=== PATIENT | male | born 1970 | race Caucasian/White ===

== ENCOUNTER 2020-01-02 07:39 | Outpatient (CLI) | payer BC, SELFPAY ==
[2020-01-02 07:49] LABS: Basophils Absolute Auto 0.03 K/mm3 (0.00-0.10); Basophils Percent Auto 0.5 % (0.0-1.0); Eosinophils Absolute Auto 0.09 K/mm3 (0.02-0.50); Eosinophils Percent Auto 1.5 % (1.0-6.0); Hematocrit 43.3 % (40.0-54.0); Hemoglobin 14.9 g/dL (14.0-18.0); Immature Granulocyte Absolute 0.02 K/mm3 (0.00-0.00); Immature Granulocyte Percent A 0.3 % (0.0-0.0); Lymphocytes Absolute Auto 2.12 K/mm3 (1.10-4.50); Lymphocytes Percent Auto 35.4 % (18.0-42.0); Mean Corpuscular HGB Conc 34.4 g/dL (32.0-36.0); Mean Corpuscular Hemoglobin 32.7 pg (27.0-31.0); Mean Corpuscular Volume 95.2 fL (78.0-102.0); Mean Platelet Volume 9.1 fl (8.7-11.0); Monocytes Absolute Auto 0.62 K/mm3 (0.10-0.90); Monocytes Percent Auto 10.4 % (2.0-11.0); Neutrophils Absolute Auto 3.1 K/mm3 (1.7-7.2); Neutrophils Percent Auto 51.9 % (50.0-70.0); Platelet Count Result 266 K/mm3 (150-420); Red Blood Count 4.55 M/mm3 (4.70-6.10); Red Cell Distribution Width 12.7 % (11.6-14.4)
[2020-01-02 07:51] LABS: Add Urine Microscopic? YES; Appearance Urine Clear (Clear); Bilirubin Urine Negative (Negative); Blood Urine Negative (Negative); Color Urine Yellow (Yellow); Glucose Urine UA Negative (Negative); Ketones Urine Negative (Negative); Leukocyte Esterase Ur Negative (Negative); Nitrate Urine Negative (Negative); Protein Urine Trace (Negative); Specific Grav Ur >= 1.030 (1.010-1.020); Urobilinogen Urine 0.2 mg/dL (0.2-1.0)
[2020-01-02 08:11] LABS: RBC Urine 0-2 /hpf (0-2); Squamous Epithelial Cell Urine Few /hpf (Few)
[2020-01-02 08:12] LABS: Bacteria Urine 2+ /hpf; Mucus Urine Heavy /lpf
[2020-01-02 08:57] LABS: Alanine Aminotransferase 69 U/L (16-63); Albumin Level 3.5 g/dL (3.4-5.0); Alkaline Phosphatase 95 U/L (46-116); Anion Gap 11.2 mmol/L (7-16); Aspartate Amino Transferase 38 U/L (15-37); Bilirubin,Total 0.6 mg/dL (0.00-1.00); Blood Urea Nitrogen 20 mg/dL (7-18); CRP 0.3 mg/dL (0.0-0.9); Carbon Dioxide 29 mmol/L (21-32); Chloride 101 mmol/L (98-108); Cholesterol 258 mg/dL (0-200); Estimated Glomerular Filt Rate > 60; Glucose 110 mg/dL (70-99); HDL Direct 35 mg/dL (40-60); Osmolality Calculated 287 mOsm/kg (285-295); Potassium 4.2 mmol/L (3.5-5.1); Sodium 137 mmol/L (136-145); Total Protein 6.8 g/dL (6.4-8.2); Uric Acid 7.5 mg/dL (3.5-7.2)
[2020-01-02 08:59] LABS: LDL Cholesterol Calculated 97 mg/dL (<130); Triglycerides 632 mg/dL (0-150)
[2020-01-02 09:00] LABS: LDL Cholesterol Direct 125 mg/dL (0-130)
[2020-01-02 15:55] LABS: Hemoglobin A1C 5.8 % (<5.7)
[2020-01-05 19:43] LABS: Hepatitis A Antibody IgM Nonreactive; Hepatitis B Core Antibody Nonreactive (Nonreactive); Hepatitis B Surface Antigen Nonreactive (Nonreactive); Hepatitis C Signal to Cutoff 0.01 ratio (<1.00); Hepatitis C Virus Antibody Nonreactive (Nonreactive)
== END 2020-01-02 07:40 | disposition home or self-care (01) ==
PROVIDERS: PCP Internal Medicine; Visit Provider Internal Medicine
DX: Z00.00 Encounter for general adult medical examination without abnormal findings (principal); I10 Essential (primary) hypertension; E79.0 Hyperuricemia without signs of inflammatory arthritis and tophaceous disease; E78.5 Hyperlipidemia, unspecified; M25.50 Pain in unspecified joint; R94.5 Abnormal results of liver function studies; R73.01 Impaired fasting glucose
CPT/HCPCS: 36415; 80053; 80061; 80074; 81001; 83036; 83721; 84550; 85025; 86140

== ENCOUNTER 2020-06-23 07:52 | Outpatient (CLI) | payer BC, SELFPAY ==
[2020-06-23 08:14] LABS: Hemoglobin A1C 5.7 % (<5.7)
[2020-06-23 08:57] LABS: Alanine Aminotransferase 54 U/L (16-63); Albumin Level 3.6 g/dL (3.4-5.0); Alkaline Phosphatase 92 U/L (46-116); Anion Gap 8 mmol/L (8-16); Aspartate Amino Transferase 23 U/L (15-37); Bilirubin,Total 0.8 mg/dL (0.00-1.00); Blood Urea Nitrogen 20 mg/dL (7-18); Calcium 9.2 mg/dL (8.5-10.1); Carbon Dioxide 29 mmol/L (21-32); Chloride 102 mmol/L (98-108); Cholesterol 233 mg/dL (0-200); Estimated Glomerular Filt Rate > 60; Glucose 106 mg/dL (70-99); HDL Direct 34 mg/dL (40-60); LDL Cholesterol Calculated 120 mg/dL (<130); Osmolality Calculated 290 mOsm/kg (285-295); Potassium 3.9 mmol/L (3.5-5.1); Sodium 139 mmol/L (136-145); Triglycerides 397 mg/dL (0-150)
== END 2020-06-23 07:53 | disposition home or self-care (01) ==
LOC: CHSLAB 07:54
PROVIDERS: PCP Internal Medicine; Visit Provider Internal Medicine
DX: R73.03 Prediabetes (principal); E78.5 Hyperlipidemia, unspecified
CPT/HCPCS: 36415; 80053; 80061; 83036

== ENCOUNTER 2020-10-30 15:41 | Emergency (ER) | payer BC, SELFPAY ==
--- NOTE | ~2020-10-30 | XR_ITS ---
XR finger 1st LT min 2V DATE: 10/30/2020 16:29 INDICATION: First digit injury, pain TECHNIQUE: 4 views COMPARISON: None FINDINGS: There is a linear transverse fracture through the tuft of the distal phalanx with up to 2.5 mm distal displacement and approximately one cortical width dorsal displacement. There is a lacerati on of the dorsal aspect of the distal digit. No other fracture or dislocation. Osteoarthritic change at the first metacarpophalangeal joint. IMPRESSION: Tuft fracture and dorsal soft tissue laceration Reviewed, dictated and finalized at location A.
[2020-10-30 15:56] VITALS: BP 161/96; PULSE 80; RESP 18; TEMP 36.2; O2SAT 97
[2020-10-30] MEDS: TETANUS,DIPHTHERIA,AC PERTUSSIS ADULT 0.5 ML (ADACEL) IM (16:17)
[2020-10-30] MEDS: KETOROLAC (*BKC) 60 MG/2 ML VIAL IM (16:18)
[2020-10-30] MEDS: cefTRIAXone 1 GM VIAL IM (16:58)
--- NOTE | 2020-10-30 17:23 | ED.WOUNDLAC ---
HPI - Wound/Laceration General Chief Complaint: Wound/Laceration Stated Complaint: cut finger Source: patient and family Mode of arrival: ambulatory History of Present Illness HPI narrative: patient inadvertently has is some smashed in a provider scribe causing the nailbed to dislodge and tip of his thumb is painful and a mild laceration at the side of his nail bed. This occurred earlier today there was some bleeding patient has significant amount of pain has good range of motion in his thumb with some numbness secondary to swelling. Onset (ago): hour(s) Extremity Location: Left: hand ( left thumb injury) Place: home Patient tetanus UTD: No Context: accidental Associated symptoms: pain Related Data Home Medications Medication Instructions Recorded Confirmed buspirone 10 mg PO DAILY 10/30/20 10/30/20 duloxetine 30 mg PO DAILY 10/30/20 10/30/20 esomeprazole magnesium 40 mg PO DAILY 10/30/20 10/30/20 telmisartan-hydrochlorothiazid 1 tablet PO DAILY 10/30/20 10/30/20 verapamil 180 mg PO HS 10/30/20 10/30/20 Allergies Allergy/AdvReac Type Severity Reaction Status Date / Time No Known Allergies Allergy Verified 10/30/20 15:51 Review of Systems Review of Systems: All systems reviewed & are unremarkable except as noted in HPI and below PMFSH Past Medical History Medical History Patient denies medical problems Family History Family History Mother Diabetes mellitus Father Family history of cardiovascular disease Father Family history of coronary artery disease Other Carcinoma of colon Cerebrovascular accident Family history of lung cancer Family history of osteoporosis Hypertension Social History Social History Smoking status: Former smoker Smoking end date: 07/18/98 Alcohol intake: current Exam Const: General: no acute distress and alert Orientation/consciousness: patient oriented x3 HENMT: Head: normal to inspection Eyes: Conjunctivae: conjunctivae normal Pupils: Equal, round and reactive pupils present Direct Ophthalmoscopy: no photophobia Neck: Neck: normal visual inspection Chest: Chest palpation & inspection: normal inspection of the chest Resp: Effort & Inspection: normal respiratory effort Auscultation: clear to auscultation bilaterally Cardio: Rate: regular rate Rhythm: regular rhythm GI: GI Palp: Yes Soft to palpation Skin: Other: thumb nail avulsion with laceration to the medial side of his left thumb with pain at the tip of his thumb with some palpation and with some movement. Neuro: General: patient oriented x3 Extrem: General: normal to inspection Psych: Mental Status: mental status grossly normal Affect: normal affect Course Course Emergency Course: Reviewed x-ray findings which shows a tuft fracture at the distal end of his left thumb with nail bed avulsion and laceration that is about 1 cm in length currently no bleeding. Vital Signs Vital signs: Vital Signs Temperature 36.2 C L 10/30/20 15:56 Pulse Rate 80 10/30/20 15:56 Respiratory Rate 18 10/30/20 15:56 Blood Pressure 161/96 H 10/30/20 15:56 Pulse Oximetry 97 10/30/20 15:56 Temperature 36.2 C L 10/30/20 15:56 Pulse Rate 80 10/30/20 15:56 Respiratory Rate 18 10/30/20 15:56 Blood Pressure 161/96 H 10/30/20 15:56 Pulse Oximetry 97 10/30/20 15:56 Procedures Laceration Laceration 1: Date: 10/30/20 Time: 17:26 Site: hand ( distal thumb medial to the left nail bed laceration 1cm in length) Side (If applicable): left Size (cm): 1 Description: linear Local Anesthetic: lidocaine 1% Pre-repair: wound explored, irrigated and irrigated extensively ====== Skin Level ====== Skin layer closed with: vicryl Size (cm): 4-0 Number of sutu
== END 2020-10-30 17:35 | disposition home or self-care (01) ==
PROVIDERS: Emergency Provider Emergency Medicine; PCP Internal Medicine
DX: S61.112A Laceration without foreign body of left thumb with damage to nail, initial encounter (principal); S62.525A Nondisplaced fracture of distal phalanx of left thumb, initial encounter for closed fracture; W22.8XXA Striking against or struck by other objects, initial encounter
CPT/HCPCS: 12001; 29130; 73140; 90471; 90715; 96372; 99283; 99284; J0696; J1885

== ENCOUNTER 2021-01-08 07:46 | Outpatient (CLI) | payer BC, SELFPAY ==
[2021-01-08 08:01] LABS: Basophils Absolute Auto 0.04 K/mm3 (0.00-0.10); Basophils Percent Auto 0.5 % (0.0-1.0); Eosinophils Absolute Auto 0.09 K/mm3 (0.02-0.50); Eosinophils Percent Auto 1.2 % (1.0-6.0); Hematocrit 40.3 % (40.0-54.0); Hemoglobin 13.9 g/dL (14.0-18.0); Immature Granulocyte Absolute 0.03 K/mm3 (0.00-0.00); Immature Granulocyte Percent A 0.4 % (0.0-0.0); Lymphocytes Absolute Auto 2.14 K/mm3 (1.10-4.50); Lymphocytes Percent Auto 28.6 % (18.0-42.0); Mean Corpuscular HGB Conc 34.5 g/dL (32.0-36.0); Mean Corpuscular Hemoglobin 32.3 pg (27.0-31.0); Mean Corpuscular Volume 93.5 fL (78.0-102.0); Mean Platelet Volume 8.8 fl (8.7-11.0); Monocytes Absolute Auto 0.71 K/mm3 (0.10-0.90); Monocytes Percent Auto 9.5 % (2.0-11.0); Neutrophils Absolute Auto 4.5 K/mm3 (1.7-7.2); Neutrophils Percent Auto 59.8 % (50.0-70.0); Platelet Count Result 277 K/mm3 (150-420); Red Blood Count 4.31 M/mm3 (4.70-6.10); Red Cell Distribution Width 12.2 % (11.6-14.4); White Blood Count 7.5 K/mm3 (4.8-10.8)
[2021-01-08 08:06] LABS: Add Urine Microscopic? NO; Appearance Urine Clear (Clear); Bilirubin Urine Negative (Negative); Blood Urine Negative (Negative); Color Urine Yellow (Yellow); Glucose Urine UA Negative (Negative); Ketones Urine Negative (Negative); Leukocyte Esterase Ur Negative (Negative); Nitrate Urine Negative (Negative); Protein Urine Negative (Negative); Specific Grav Ur >= 1.030 (1.010-1.020); Urobilinogen Urine 0.2 mg/dL (0.2-1.0); pH Urine 5.5 (5.0-8.0)
[2021-01-08 08:15] LABS: Hemoglobin A1C 5.8 % (<5.7)
[2021-01-08 09:02] LABS: Alanine Aminotransferase 56 U/L (16-63); Albumin Level 3.5 g/dL (3.4-5.0); Alkaline Phosphatase 88 U/L (46-116); Anion Gap 11 mmol/L (8-16); Aspartate Amino Transferase 27 U/L (15-37); Bilirubin,Total 0.4 mg/dL (0.00-1.00); Blood Urea Nitrogen 28 mg/dL (7-18); Calcium 9.1 mg/dL (8.5-10.1); Carbon Dioxide 26 mmol/L (21-32); Chloride 101 mmol/L (98-108); Cholesterol 208 mg/dL (0-200); Estimated Glomerular Filt Rate > 60; Glucose 108 mg/dL (70-99); HDL Direct 37 mg/dL (40-60); LDL Cholesterol Calculated 102 mg/dL (<130); Osmolality Calculated 292 mOsm/kg (285-295); Potassium 3.9 mmol/L (3.5-5.1); Sodium 138 mmol/L (136-145); Total Protein 6.6 g/dL (6.4-8.2); Triglycerides 344 mg/dL (0-150)
== END 2021-01-08 07:47 | disposition home or self-care (01) ==
PROVIDERS: PCP Internal Medicine; Visit Provider Internal Medicine
DX: R73.03 Prediabetes (principal); I10 Essential (primary) hypertension; E78.5 Hyperlipidemia, unspecified; Z00.00 Encounter for general adult medical examination without abnormal findings
CPT/HCPCS: 36415; 80053; 80061; 81003; 83036; 85025

== ENCOUNTER 2021-01-14 07:18 | Outpatient (CLI) | payer BC, SELFPAY ==
--- NOTE | ~2021-01-14 | XR_ITS ---
EXAMINATION: XR shoulder RT min 2V INDICATION: Right shoulder pain TECHNIQUE: Four views of the right shoulder are obtained on five radiographs. COMPARISON: None FINDINGS: Normal alignment. No fracture. There is mild osteoarthritis of the glenohumeral and acromio clavicular joints. Soft tissues are unremarkable. IMPRESSION: 1. Mild osteoarthritis. Reviewed, dictated and finalized at location B. IMPRESSION: 1. Mild osteoarthritis.
== END 2021-01-14 07:19 | disposition home or self-care (01) ==
LOC: CHSIMG 07:20
PROVIDERS: PCP Internal Medicine; Visit Provider Internal Medicine
DX: M25.511 Pain in right shoulder (principal)
CPT/HCPCS: 73030

== ENCOUNTER 2021-04-07 14:32 | Outpatient (CLI) | payer BC, SELFPAY ==
--- NOTE | ~2021-04-07 | US_ITS ---
EXAMINATION: US breast LT limited HISTORY: Palpable mass at the 9:00 location of the left breast. TECHNIQUE: Limited high-resolution left breast ultrasound was performed. Subareolar right breast ultr asound is performed for comparison. FINDINGS: There is no evidence of suspicious cystic or solid mass in the vicinity of the reported pal pable abnormality of concern in the left breast. IMPRESSION: No specific sonographic correlate is identified for the reported palpable abnormality of concern. Fur ther evaluation at this time should be based on clinical assessment. Continued follow-up physical exa mination is recommended. BI-RADS Category 1: Negative Reviewed, dictated and finalized at location A. IMPRESSION: No specific sonographic correlate is identified for the reported palpable abnor mality of concern. Further evaluation at this time should be based on clinical assessment. Continued follow-up physical examination is recommended. BI-RADS Category 1: Negative
== END 2021-04-07 14:33 | disposition home or self-care (01) ==
LOC: CHSIMG 14:32
PROVIDERS: PCP Internal Medicine; Visit Provider Internal Medicine
DX: N63.20 Unspecified lump in the left breast, unspecified quadrant (principal)
CPT/HCPCS: 76642

== ENCOUNTER 2021-07-17 07:31 | Outpatient (CLI) | payer BC, SELFPAY ==
[2021-07-17 07:49] LABS: Basophils Absolute Auto 0.04 K/mm3 (0.00-0.10); Basophils Percent Auto 0.6 % (0.0-1.0); Eosinophils Percent Auto 1.6 % (1.0-6.0); Hematocrit 41.5 % (40.0-54.0); Hemoglobin 13.9 g/dL (14.0-18.0); Immature Granulocyte Absolute 0.01 K/mm3 (0.00-0.00); Immature Granulocyte Percent A 0.2 % (0.0-0.0); Lymphocytes Absolute Auto 1.88 K/mm3 (1.10-4.50); Lymphocytes Percent Auto 29.8 % (18.0-42.0); Mean Corpuscular HGB Conc 33.5 g/dL (32.0-36.0); Mean Corpuscular Hemoglobin 31.4 pg (27.0-31.0); Mean Corpuscular Volume 93.7 fL (78.0-102.0); Mean Platelet Volume 9.3 fl (8.7-11.0); Monocytes Absolute Auto 0.62 K/mm3 (0.10-0.90); Monocytes Percent Auto 9.8 % (2.0-11.0); Neutrophils Absolute Auto 3.7 K/mm3 (1.7-7.2); Platelet Count Result 294 K/mm3 (150-420); Red Blood Count 4.43 M/mm3 (4.70-6.10); Red Cell Distribution Width 12.2 % (11.6-14.4); White Blood Count 6.3 K/mm3 (4.8-10.8)
[2021-07-17 07:51] LABS: Add Urine Microscopic? NO; Appearance Urine Clear (Clear); Bilirubin Urine Negative (Negative); Blood Urine Negative (Negative); Color Urine Yellow (Yellow); Glucose Urine UA Negative (Negative); Ketones Urine Negative (Negative); Leukocyte Esterase Ur Negative (Negative); Nitrate Urine Negative (Negative); Protein Urine Negative (Negative); Specific Grav Ur >= 1.030 (1.010-1.020); Urobilinogen Urine 0.2 mg/dL (0.2-1.0); pH Urine 5.5 (5.0-8.0)
[2021-07-17 08:04] LABS: Hemoglobin A1C 5.7 % (<5.7)
[2021-07-17 09:36] LABS: Alanine Aminotransferase 33 U/L (16-63); Albumin Level 3.6 g/dL (3.4-5.0); Alkaline Phosphatase 62 U/L (46-116); Anion Gap 10 mmol/L (8-16); Aspartate Amino Transferase 15 U/L (15-37); Bilirubin,Total 0.5 mg/dL (0.00-1.00); Blood Urea Nitrogen 25 mg/dL (7-18); Carbon Dioxide 25 mmol/L (21-32); Chloride 105 mmol/L (98-108); Cholesterol 140 mg/dL (0-200); Estimated Glomerular Filt Rate > 60; Glucose 93 mg/dL (70-99); HDL Direct 33 mg/dL (40-60); LDL Cholesterol Calculated 81 mg/dL (<130); Osmolality Calculated 294 mOsm/kg (285-295); Potassium 4.2 mmol/L (3.5-5.1); Sodium 140 mmol/L (136-145); Total Protein 6.3 g/dL (6.4-8.2); Triglycerides 132 mg/dL (0-150)
== END 2021-07-17 07:32 | disposition home or self-care (01) ==
LOC: CHSLAB 07:34
PROVIDERS: PCP Internal Medicine; Visit Provider Internal Medicine
DX: E78.5 Hyperlipidemia, unspecified (principal); I10 Essential (primary) hypertension; R73.03 Prediabetes
CPT/HCPCS: 36415; 80053; 80061; 81003; 83036; 85025

== ENCOUNTER 2021-09-02 07:54 | Outpatient (CLI) | payer BC, SELFPAY ==
--- NOTE | 2021-09-02 08:05 | ECG_ITS ---
Measurements Intervals Gilman Rate: 58 P: 42 LA: 161 QRS: 66 QRSD: 101 T: 52 QT: 426 QTc: 420 Interpretive Statements SINUS BRADYCARDIA BORDERLINE ECG Electronically Signed On 09-02-2021 8:45:37 [employer]CH[employer] by Oswald Lozano D.O.
== END 2021-09-02 07:55 | disposition home or self-care (01) ==
LOC: ANHSURGERY 08:00
PROVIDERS: PCP Internal Medicine; Visit Provider Surgery
DX: Z01.818 Encounter for other preprocedural examination (principal); K42.9 Umbilical hernia without obstruction or gangrene; I10 Essential (primary) hypertension; E78.5 Hyperlipidemia, unspecified; R00.1 Bradycardia, unspecified
CPT/HCPCS: 36415; 86850; 86900; 86901; 93005

== ENCOUNTER 2021-09-09 00:32 | Day surgery (SDC) | payer BC, SELFPAY ==
[2021-09-01 13:48] VITALS: BMI 34.5
--- NOTE | 2021-09-01 13:57 | PC.NURSE ---
Report to the Outpatient Waiting Room, entrance under the green pavilion located off [facility], at time 8:00 on date 09/09/21. OR Time: 10:00. - You will be asked a series of questions to screen for COVID 19 for your protection. - A mask is required within the hospital. - One visitor is allowed at this time. Preoperative COVID Testing Requirements: No COVID Test needed if: (proof is required; if not received patient will have Rapid Test prior to entry) - Patient has received COVID Vaccine at least 14 days prior to procedure date or - Patient has positive COVID test result within last 90 days of surgery date. COVID Test needed if above criteria is not met Patients may have clear liquids (water, carbonated beverages, clear teas, apple juice) until 3 hours prior to surgery (7:00) with a maximum of 20 ounces. - No food from midnight until time of surgery Take the following medications with a SIP of water the morning of surgery: NONE Medications to discontinue per physician: VITAMINS/SUPPLEMENTS Date to take last dose: 09/05/21 Please no make-up, nail lithuanian, hairspray, perfume, deodorant, or body powder the day of surgery. No jewelry (including any body piercings) or valuables the day of surgery, leave them at home. Please take a shower or bath the night before, or the morning of, surgery with an antibacterial soap. Wear comfortable, loose fitting clothing. HIBICLENS SHOWER - Jewelry must be removed prior to entering the operating room. Rings and piercings that are not removed may be cut off. - The hospital will not accept responsibility for valuables. - Please leave all valuables, including medications, at home the day of surgery. If you are going home after surgery, a licensed courtesy driver must drive you home. - NO public transportation without another adult. - We recommend that an adult stay with you for 24 hours following discharge. - We also recommend that you do not drive, make important decision, drink alcoholic beverages, or take any drugs that were not prescribed by your health care provider for at least 24 hours after your discharge time. Follow any additional instructions given to you from your surgeon. Telephone instructions given to REMI WRIGHT and asked if any additional questions and then verbalized understanding. Patient advised to call surgeon office or pre surgery nurse liaison [phone] if any additional questions.
[2021-09-09] VITALS (7 sets, daily range): BP systolic 106–123; BP diastolic 63–79; PULSE 51–74; RESP 12–61; TEMP 36.2–36.5; O2SAT 98–100
[2021-09-09] MEDS: ACETAMINOPHEN 500 MG TABLET 1000 MG PO (06:39)
[2021-09-09] MEDS: KETOROLAC 15 MG/ML VIAL (*BKC) IV PUSH (06:42)
[2021-09-09] MEDS: LACTATED RINGERS 1,000 ML 30 ML IV CONT ×2 (06:45→09:44)
--- NOTE | 2021-09-09 07:02 | WPDANESEPPF ---
Anes - Initial Pre Proc Eval Procedure: Operation Date: 09/09/21 07:30 Proposed Procedures p Laparoscopic Umbilical Hernia Repair with Mesh, Davinci Assisted - Frederick Rand DO Date/Time: 09/09/21 07:02 Surgeon: Frederick Rand DO Pre Op Diagnosis: umbilical hernia Patient Data Age: 51 Gender: M Height: 1.78 m Weight: 109.32 kg Allergies Allergy/AdvReac Type Severity Reaction Status Date / Time No Known Allergies Allergy Verified 09/01/21 13:45 Home Medications Medication Instructions Recorded Confirmed Type esomeprazole magnesium 40 mg PO DAILY 10/30/20 09/01/21 History verapamil 180 mg PO HS 10/30/20 09/01/21 History Lactobacills gasseri-Bifidobac 1 cap PO DAILY 07/30/21 09/01/21 History bifidum,longum 1.5 billion cell capsule ergocalciferol (vitamin D2) 1,250 1,250 mcg PO MONTHLY 07/30/21 09/01/21 History mcg (50,000 unit) capsule fenofibrate 160 mg tablet 160 mg PO DAILY 07/30/21 09/01/21 History Patient hx anesthesia problems: none Family hx anesthesia problems: none Results Review: All pre-operative results and documents have been reviewed as part of the pre-operative evaluation. [facility] Past Medical History Medical History GERD (gastroesophageal reflux disease) High cholesterol Hypertension MERCEDES (obstructive sleep apnea) Surgical History Surgical History History of colonoscopy History of esophagogastroduodenoscopy (EGD) History of tonsillectomy Family History Family History Mother Diabetes mellitus Father Family history of cardiovascular disease Father Family history of coronary artery disease Other Carcinoma of colon Cerebrovascular accident Family history of lung cancer Family history of osteoporosis Hypertension Social History Social History Smoking packs per day: 1 Smoking cigarettes per day: 20.0 Years smoked: 8 Smoking pack-years: 8.00 Smoking status: Former smoker Tobacco type: cigarettes Smoking end date: 07/18/01 Alcohol intake: current Drinks per week: 3 Substance use: never Substance use type: does not use Living arrangements: with family 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 Informed Consent: The patient's anesthetic plan and its attendant risks and benefits were discussed with the patient/family/POA. Questions were solicited and answers provided to the satisfaction of the patient/family/POA.
--- NOTE | 2021-09-09 07:04 | WPDHPUPDATE1 ---
History and Physical Update Update Date/Time: 09/09/21 07:04 History and Physical has been reviewed, including an updated exam of the patient. There are NO changes in the patient's condition. Risks, benefits, and alternatives have been discussed and questions answered. Patient agrees to proceed with procedure.
--- NOTE | 2021-09-09 07:04 | PM.IMHP ---
H&P: HPI History of Present Illness Date/Time: 09/09/21 07:04 Chief Complaint: umbilical hernia Narrative: 51 yo man presents for umbilical hernia repair. He denies any changes since last seen in office. Review of Systems Review of Systems: All systems reviewed & are unremarkable except as noted in HPI and below Constitutional: Constitutional: Denies chills, Denies fever(s), Denies headache(s) and Denies weight loss Eyes: Eyes: Denies change in vision ENT: Denies dizziness, Denies headache(s), Denies neck mass and Denies throat swelling Cardiovascular: Cardiovascular: Denies chest pain, Denies lightheadedness and Denies dyspnea Respiratory: Respiratory: Denies cough, Denies dyspnea and Denies wheezing Gastrointestinal: Gastrointestinal: Denies abdominal pain, Denies change in bowel habits, Denies nausea and Denies vomiting Genitourinary: Genitourinary: Denies hematuria and Denies dysuria Musculoskeletal: Musculoskeletal: Reports as per HPI Integumentary/Breasts: Skin/Breast: Reports as per HPI Neurologic: Denies dizziness and Denies headache(s) Allergic/Immunologic: Allergic/Immunologic: Denies throat swelling and Denies wheezing PMFSH Past Medical History Medical History GERD (gastroesophageal reflux disease) High cholesterol Hypertension MERCEDES (obstructive sleep apnea) Surgical History Surgical History History of colonoscopy History of esophagogastroduodenoscopy (EGD) History of tonsillectomy Family History Family History Mother Diabetes mellitus Father Family history of cardiovascular disease Father Family history of coronary artery disease Other Carcinoma of colon Cerebrovascular accident Family history of lung cancer Family history of osteoporosis Hypertension Social History Social History Smoking packs per day: 1 Smoking cigarettes per day: 20.0 Years smoked: 8 Smoking pack-years: 8.00 Smoking status: Former smoker Tobacco type: cigarettes Smoking end date: 07/18/01 Alcohol intake: current Drinks per week: 3 Substance use: never Substance use type: does not use Living arrangements: with family 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 Spiritual care concerns: No Meds Home Medications and Allergies Home Medications Medication Instructions Recorded Confirmed Type esomeprazole magnesium 40 mg PO DAILY 10/30/20 09/09/21 History verapamil 180 mg PO HS 10/30/20 09/09/21 History Lactobacills gasseri-Bifidobac 1 cap PO DAILY 07/30/21 09/09/21 History bifidum,longum 1.5 billion cell capsule ergocalciferol (vitamin D2) 1,250 1,250 mcg PO MONTHLY 07/30/21 09/09/21 History mcg (50,000 unit) capsule fenofibrate 160 mg tablet 160 mg PO DAILY 07/30/21 09/09/21 History Allergies Allergy/AdvReac Type Severity Reaction Status Date / Time No Known Allergies Allergy Verified 09/09/21 07:02 Exam Const: General: no acute distress and alert Orientation/consciousness: patient oriented x3 HENMT: Head: normocephalic and atraumatic Ears: hearing grossly normal bilaterally General nose exam: Normal nares present Mouth: Yes Normal oral and palatal mucosa present Eyes: Periorbital: periorbital findings normal Sclera: sclerae normal EOM: EOMs intact bilaterally Neck: Neck: normal visual inspection, no lymphadenopathy and trachea midline Chest: Chest palpation & inspection: normal inspection of the chest Resp: Effort & Inspection: normal respiratory effort Auscultation: clear to auscultation bilaterally Cardio: Jugular venous distension: no JVD Rate: regular rate Rhythm: regular rhythm Heart sounds: S1 normal heart sound present and S2 normal heart sound present Peripheral pulses: Peripheral pu
[2021-09-09] MEDS: ceFAZolin 2 GM/D5W 50 ML 2 GM/50 ML BAG IVPB (07:28)
--- NOTE | 2021-09-09 09:33 | W.PM.PROC2 ---
Procedure Note - Detailed Date of Procedure 09/09/21 Pre-op Diagnosis umbilical hernia Post-op Diagnosis other (Incarcerated umbilical hernia) Procedure Performed Laparoscopic Incarcerated Umbilical Hernia Repair with Mesh, da Suni assisted Surgeon Frederick Rand, Anesthesia general and local (Exparel) Indications This is a 51-year-old man who presents with an umbilical bulge that has been present for the past 2 years. He states that this is slightly increased in size over time. He also has some intermittent discomfort. He is found to have an umbilical hernia on physical exam. Discussions were made with the patient about treatment options and decision was made to proceed with laparoscopic umbilical hernia repair with mesh, da Suni assisted. Findings Laparoscopic umbilical hernia repair was performed. Patient was found to have a 2 cm umbilical hernia that was incarcerated with omentum. The omentum was reduced 1st and then a preperitoneal pocket was created for mesh placement. A robotic transabdominal preperitoneal (rTAPP) approach was utilized. The fascia was then closed using 0 Stratafix running absorbable suture. A Ventralight ST 15 cm x 10 cm mesh was then placed and secured at the 4 corners using 3-0 Vicryl simple interrupted sutures. The peritoneum was then closed over the mesh using 3 0 V lock running absorbable suture. No specimens were obtained for pathology. Description of Procedure Procedure as well as risks, benefits, and alternatives were discussed with the patient. Written consent was obtained and placed in chart prior to procedure. Patient was brought back to surgical suite. He was placed supine on operating table. Time-out was done to confirm patient and procedure. He was then intubated by the anesthesia department. A bump was placed under his left hip, and the bed was flexed slightly to extend the space between his costal margin and iliac crest. His abdomen was prepped and draped in sterile fashion using chlorhexidine prep. A 5 millimeter incision was made in the left upper quadrant, and a 5 millimeter Optiview trocar was advanced through the abdominal layers under direct visualization. Once inside the abdominal cavity, carbon dioxide insufflation was used to create a pneumoperitoneum. His abdomen was inspected. An 8 millimeter incision was made in the left lower quadrant, and an 8 millimeter robotic trocar was placed under direct visualization. Another 8 millimeter incision was made in the left lateral abdomen, and an 8 millimeter robotic trocar was placed under direct visualization. Exparel was infiltrated along the lateral abdominal barrios to perform a transversus abdominis plane block bilaterally. The 5 millimeter port was removed, the incision was extended to 12 millimeters, and a 12 millimeter air seal port was placed under direct visualization. A Miky-Huff cone was also used to place an 0-Vicryl simple interrupted suture at this trocar site. The robotic arms were brought up to the patient's bedside and secured to the ports. The camera and instruments were inserted, and I then moved over to the robotic console and took control of the camera and instruments. After careful thorough inspection of the abdominal cavity, I began my dissection at the hernia. The incarcerated omentum was carefully reduced using retraction and scissors with electrocautery. A preperitoneal pocket was then created starting on the left lateral side using scissors with electrocautery. Hernia sac was then reduced along with the preperitoneal pocket and wide enough pocket was created for mesh placement. I then measured the hernia size. The hernia measured 2 cm. The fascia was closed using an 0-Stratafix running suture in a vertical fashion. A Ventralight ST 15 cm x 10 cm mesh was then placed within the preperitoneal pocket. This was oriented vertically with the mesh centered on the hernia defect. The mesh was then secured at the 4 corners
== END 2021-09-09 11:28 | disposition home or self-care (01) ==
PROVIDERS: PCP Internal Medicine; Visit Provider Surgery
PROC: (CPT 49653; principal; 2021-09-09 07:30)
DX: K42.0 Umbilical hernia with obstruction, without gangrene (principal); I10 Essential (primary) hypertension; E78.00 Pure hypercholesterolemia, unspecified; G47.33 Obstructive sleep apnea (adult) (pediatric); K21.9 Gastro-esophageal reflux disease without esophagitis; Z87.891 Personal history of nicotine dependence; E66.9 Obesity, unspecified; Z68.35 Body mass index [BMI] 35.0-35.9, adult
CPT/HCPCS: 49653; S2900; A9270; C1781; C9290; J0690; J1100; J1170; J1885; J2250; J2370; J2405; J2704; J2710; J3010; J7030; J7120

== ENCOUNTER 2022-03-09 06:51 | Outpatient (CLI) | payer BC, SELFPAY ==
[2022-03-09 07:27] LABS: Alanine Aminotransferase 43 U/L (16-63); Albumin Level 3.4 g/dL (3.4-5.0); Alkaline Phosphatase 72 U/L (46-116); Anion Gap 5 mmol/L (8-16); Aspartate Amino Transferase 30 U/L (15-37); Bilirubin,Total 0.8 mg/dL (0.00-1.00); Blood Urea Nitrogen 24 mg/dL (7-18); Calcium 8.6 mg/dL (8.5-10.1); Carbon Dioxide 27 mmol/L (21-32); Chloride 103 mmol/L (98-108); Cholesterol 165 mg/dL (0-200); Estimated Glomerular Filt Rate > 60; Glucose 103 mg/dL (70-99); HDL Direct 44 mg/dL (40-60); LDL Cholesterol Calculated 71 mg/dL (<130); Osmolality Calculated 284 mOsm/kg (285-295); Sodium 135 mmol/L (136-145); Total Protein 6.6 g/dL (6.4-8.2); Triglycerides 250 mg/dL (0-150)
[2022-03-10 16:47] LABS: Hemoglobin A1C 5.3 % (<5.7)
== END 2022-03-09 06:52 | disposition home or self-care (01) ==
LOC: CHSLAB 06:52
PROVIDERS: PCP Internal Medicine; Visit Provider Internal Medicine
DX: E78.5 Hyperlipidemia, unspecified (principal); I10 Essential (primary) hypertension; R73.9 Hyperglycemia, unspecified
CPT/HCPCS: 36415; 80053; 80061; 83036

== ENCOUNTER 2022-11-08 16:03 | Outpatient (CLI) | payer BC, SELFPAY ==
--- NOTE | ~2022-11-08 | XR_ITS ---
EXAMINATION: XR hand LT min 3V DATE: 11/08/2022 16:58 INDICATION: Left hand pain. TECHNIQUE: 3 views of left hand were obtained. COMPARISON: Left thumb radiographs 10/30/2020 FINDINGS: Bone alignment is normal. There is a healed fracture of tuft of first distal phalanx. There is moderate osteoarthritis of first and third metacarpophalangeal joints and mild osteoarthritis of second metacarpophalangeal joint. There is moderate osteoarthritis of third distal interphalangeal shadia int and mild osteoarthritis of second, fourth, and fifth distal interphalangeal joints. IMPRESSION: 1. Polyarticular osteoarthritis. Reviewed, dictated and finalized at location A.
--- NOTE | ~2022-11-08 | XR_ITS ---
EXAMINATION: XR hand RT min 3V DATE: 11/08/2022 16:57 INDICATION: Right hand pain. TECHNIQUE: 3 views of right hand were obtained. COMPARISON: None. FINDINGS: Bone alignment is normal. No fracture. There is moderate osteoarthritis of second-fourth me tacarpophalangeal joints and mild osteoarthritis of some of the interphalangeal joints. IMPRESSION: 1. Polyarticular osteoarthritis. Reviewed, dictated and finalized at location A.
== END 2022-11-08 16:04 | disposition home or self-care (01) ==
LOC: CHSIMG 16:09
PROVIDERS: PCP Internal Medicine; Visit Provider Internal Medicine
DX: Z00.00 Encounter for general adult medical examination without abnormal findings (principal); I10 Essential (primary) hypertension; E78.5 Hyperlipidemia, unspecified; M25.542 Pain in joints of left hand; M25.541 Pain in joints of right hand; M19.042 Primary osteoarthritis, left hand; M19.041 Primary osteoarthritis, right hand
CPT/HCPCS: 73130

== ENCOUNTER 2022-11-10 07:16 | Outpatient (CLI) | payer BC, SELFPAY ==
[2022-11-10 07:35] LABS: Basophils Absolute Auto 0.04 K/mm3 (0.00-0.10); Basophils Percent Auto 0.5 % (0.0-1.0); Eosinophils Absolute Auto 0.08 K/mm3 (0.02-0.50); Hematocrit 48.5 % (40.0-54.0); Hemoglobin 16.7 g/dL (14.0-18.0); Immature Granulocyte Absolute 0.01 K/mm3 (0.00-0.00); Immature Granulocyte Percent A 0.1 % (0.0-0.0); Lymphocytes Absolute Auto 2.06 K/mm3 (1.10-4.50); Lymphocytes Percent Auto 26.4 % (18.0-42.0); Mean Corpuscular HGB Conc 34.4 g/dL (32.0-36.0); Mean Corpuscular Hemoglobin 32.2 pg (27.0-31.0); Mean Corpuscular Volume 93.4 fL (78.0-102.0); Monocytes Absolute Auto 0.78 K/mm3 (0.10-0.90); Neutrophils Absolute Auto 4.8 K/mm3 (1.7-7.2); Platelet Count Result 230 K/mm3 (150-420); Red Blood Count 5.19 M/mm3 (4.70-6.10); Red Cell Distribution Width 12.2 % (11.6-14.4); White Blood Count 7.8 K/mm3 (4.8-10.8)
[2022-11-10 07:36] LABS: Appearance Urine Clear (Clear); Bilirubin Urine Negative (Negative); Blood Urine Negative (Negative); Color Urine Light Yellow (Yellow); Glucose Urine UA Negative (Negative); Ketones Urine Negative (Negative); Leukocyte Esterase Ur Negative (Negative); Nitrate Urine Negative (Negative); Protein Urine Negative (Negative); Specific Grav Ur 1.025 (1.010-1.020); Urobilinogen Urine 0.2 mg/dL (0.2-1.0)
[2022-11-10 07:39] LABS: Add Urine Microscopic? NO
[2022-11-10 07:54] LABS: Hemoglobin A1C 5.3 % (<5.7)
[2022-11-10 08:39] LABS: Alanine Aminotransferase 56 U/L (16-63); Albumin Level 3.6 g/dL (3.4-5.0); Alkaline Phosphatase 66 U/L (46-116); Anion Gap 9 mmol/L (8-16); Aspartate Amino Transferase 32 U/L (15-37); Bilirubin,Total 0.7 mg/dL (0.00-1.00); Blood Urea Nitrogen 27 mg/dL (7-18); Calcium 8.6 mg/dL (8.5-10.1); Carbon Dioxide 26 mmol/L (21-32); Chloride 102 mmol/L (98-108); Cholesterol 198 mg/dL (0-200); Estimated Glomerular Filt Rate > 60; Glucose 94 mg/dL (70-99); HDL Direct 36 mg/dL (40-60); LDL Cholesterol Calculated 87 mg/dL (<130); Osmolality Calculated 289 mOsm/kg (285-295); Potassium 4.1 mmol/L (3.5-5.1); Sodium 137 mmol/L (136-145); Thyroid Stimulating Hormone 2.75 uIU/mL (0.36-3.74); Total Protein 6.6 g/dL (6.4-8.2); Triglycerides 375 mg/dL (0-150); Uric Acid 7.1 mg/dL (3.5-7.2)
[2022-11-10 08:41] LABS: CRP < 0.5 mg/dL (0.0-0.9)
== END 2022-11-10 07:17 | disposition home or self-care (01) ==
LOC: CHSLAB 07:19
PROVIDERS: PCP Internal Medicine; Visit Provider Internal Medicine
DX: Z00.00 Encounter for general adult medical examination without abnormal findings (principal); I10 Essential (primary) hypertension; E78.5 Hyperlipidemia, unspecified; M79.642 Pain in left hand; M79.641 Pain in right hand
CPT/HCPCS: 36415; 80053; 80061; 81003; 83036; 84153; 84443; 84550; 85025; 86140; G0103

== ENCOUNTER 2023-08-03 17:19 | Outpatient (CLI) | payer BC, SELFPAY ==
[2023-08-03 17:34] LABS: Basophils Absolute Auto 0.05 K/mm3 (0.00-0.10); Basophils Percent Auto 0.6 % (0.0-1.0); Eosinophils Absolute Auto 0.08 K/mm3 (0.02-0.50); Eosinophils Percent Auto 0.9 % (1.0-6.0); Hematocrit 49.6 % (40.0-54.0); Hemoglobin 16.4 g/dL (14.0-18.0); Immature Granulocyte Absolute 0.02 K/mm3 (0.00-0.00); Immature Granulocyte Percent A 0.2 % (0.0-0.0); Lymphocytes Absolute Auto 2.58 K/mm3 (1.10-4.50); Lymphocytes Percent Auto 29.9 % (18.0-42.0); Mean Corpuscular HGB Conc 33.1 g/dL (32.0-36.0); Mean Corpuscular Hemoglobin 30.9 pg (27.0-31.0); Mean Corpuscular Volume 93.4 fL (78.0-102.0); Mean Platelet Volume 9.1 fl (8.7-11.0); Monocytes Absolute Auto 0.65 K/mm3 (0.10-0.90); Monocytes Percent Auto 7.5 % (2.0-11.0); Neutrophils Absolute Auto 5.2 K/mm3 (1.7-7.2); Neutrophils Percent Auto 60.9 % (50.0-70.0); Platelet Count Result 259 K/mm3 (150-420); Red Blood Count 5.31 M/mm3 (4.70-6.10); Red Cell Distribution Width 12.3 % (11.6-14.4); White Blood Count 8.6 K/mm3 (4.8-10.8)
[2023-08-03 17:59] LABS: Hemoglobin A1C 5.3 % (<5.7)
[2023-08-03 19:02] LABS: Alanine Aminotransferase 45 U/L (16-63); Albumin Level 3.9 g/dL (3.4-5.0); Alkaline Phosphatase 59 U/L (46-116); Anion Gap 9 mmol/L (8-16); Aspartate Amino Transferase 21 U/L (15-37); Bilirubin,Total 0.9 mg/dL (0.00-1.00); Blood Urea Nitrogen 23 mg/dL (7-18); Calcium 8.5 mg/dL (8.5-10.1); Carbon Dioxide 28 mmol/L (21-32); Chloride 97 mmol/L (98-108); Cholesterol 169 mg/dL (0-200); Estimated Glomerular Filt Rate > 60; Glucose 78 mg/dL (70-99); HDL Direct 45 mg/dL (40-60); LDL Cholesterol Calculated 98 mg/dL (<130); Osmolality Calculated 280 mOsm/kg (285-295); Potassium 4.1 mmol/L (3.5-5.1); Sodium 134 mmol/L (136-145); Total Protein 6.8 g/dL (6.4-8.2); Triglycerides 132 mg/dL (0-150)
== END 2023-08-03 17:20 | disposition home or self-care (01) ==
LOC: CHSLAB 17:22
PROVIDERS: PCP Internal Medicine; Visit Provider Internal Medicine
DX: I10 Essential (primary) hypertension (principal); E78.5 Hyperlipidemia, unspecified; R73.03 Prediabetes
CPT/HCPCS: 36415; 80053; 80061; 83036; 85025

== ENCOUNTER 2024-08-06 15:45 | Outpatient (CLI) | payer BC, SELFPAY ==
--- NOTE | ~2024-08-06 | XR_ITS ---
EXAMINATION: HAND-TAYA ARTHRITIS 3+VIEWS DATE: 08/06/2024 16:02 INDICATION: Worsening bilateral hand pain, right greater than left TECHNIQUE: Posteroanterior and lateral views of the left and of the right hands as well as a ballcatc hers view of both hands were obtained. COMPARISON: Radiographs dated 11/08/2022 FINDINGS: Bone alignment is normal at the bilateral hands and wrists. No acute fractures. Likely old healed fra cture at the tuft of the left first distal phalanx. Polyarticular osteoarthritis, moderate at the lef t first and third and right first-fourth metacarpophalangeal joints as well as at the right distal ra dioulnar joint. Mild osteoarthritis at a few of the interphalangeal joints with distal predominance. IMPRESSION: 1. No significant interval change in mild to moderate polyarticular osteoarthritis at the bilateral h ands. Reviewed, dictated and finalized at location A. NG BLOCKER IMPRESSION: 1. No significant interval change in mild to moderate polyarticular osteoarthri tis at the bilateral hands.
== END 2024-08-06 15:46 | disposition home or self-care (01) ==
LOC: MICIMG 15:50
PROVIDERS: PCP Family Medicine; Visit Provider Family Medicine
DX: M19.042 Primary osteoarthritis, left hand (principal); M19.041 Primary osteoarthritis, right hand
CPT/HCPCS: 73130

== ENCOUNTER 2025-02-26 02:21 | Day surgery (SDC) | payer BC, SELFPAY ==
[2025-02-11 10:58] VITALS: BMI 35.5
--- OUTSIDE RECORDS SUMMARY | 2025-02-26 02:24 | XMS_ITS | Clinical Summary ---
Author Organization [facility] [address] [place] [id number] Care Team Providers Care Magazine Filler Name Role Phone Rojelio Wade MD Primary Care Prov ider Allergies No known active allergies Medications esomeprazole DR (NexIUM) 40 mg capsule Take 40 mg by mouth daily before breakfast. Active telmisartan-hydroch lorothiazid (MICARDIS HCT) 80-25 mg per tablet Take 1 tablet by mouth daily 2 9 Active busPIRone (BUSPAR) 10 mg tabletIndications:G eneralized Anxiety Disorder Take 10 mg by mouth 2 (two) times a day as needed Active DULoxetine DR (CYMBALTA) 30 mg capsule Take 30 mg by mouth daily Active verapamil SR (CALAN SR) 180 mg CR tablet Take 180 mg by mouth nightly 1 Active fenofibrate (TRIGLIDE) 160 mg tabletIndications:M oderate mixed hyperlipidemia not requiring statin therapy TAKE 1 TABLET DAILY 90 tablet 1 Active rosuvastatin (CRESTOR) 5 mg tabletIndications:M oderate mixed hyperlipidemia not requiring statin therapy TAKE 1 TABLET DAILY 90 tablet 1 Active ergocalciferol (VITAMIN D) 50,000 unit capsuleIndications: Vitamin D deficiency TAKE 1 CAPSULE ONCE A WEEK 4 capsule 2 Active benzonatate (TESSALON) 100 mg capsuleIndications: Cough Take 1 capsule (100 mg total) by mouth 3 (three) times a day as needed for cough 42 capsule 4 Active Active Problems Problem Noted Date Diagnosed Date Former smoker 11/18/2020 Assessment & Plan (11/18/2020 1:56 PM CDT): Does not meet criteria for lung cancer screening. Sleep-related breathing disorder 11/18/2020 Assessment & Plan (11/18/2020 2:15 PM CDT): Clinical signs and symptoms compatible with a sleep-related breathing disorder.. Low clinical suspicion for narcolepsy, REM behavior disorder, restless leg syndrome, parasomnia, movement or circadian rhythm disorder. Polysomnography warranted. Evaluate for home sleep study versus laboratory evaluation. Decision based on the presence and or absence of significant cardiopulmonary morbidity, inconclusive home study results etc. The following study is recommended: (home) Discussed treatment options including CPAP, auto CPAP, mandibular advancement devices. Encourage weight loss. Reduction of 10% can lower the apnea-hypopnea index by 25% Briefly reviewed the suggested relationship between sleep disorder breathing and cardiovascular health. Discourage driving when drowsy until diagnosis, treatment for suspected sleep disorder breathing finalized. Silviculturist regarding the use of alcohol, caffeine nicotine when applicable. Rectal bleeding 09/15/2018 Overview (09/15/2018): Added automatically from request for surgery [id number] Bloating 09/15/2018 Overview (09/15/2018): Added automatically from request for surgery [id number] Gastroesophageal reflux disease without esophagi tis 09/14/2018 Rectal pain 09/14/2018 RLQ abdominal pain 09/14/2018 Immunizations Immunization Administration Dates Next Due Pfizer SARS-CoV-2 Monovalent Vaccination (12+ Yrs) PURPLE 11/13/2020,10/14/2020 Tdap 10/30/2020 Surgical History Surgery Date Site/Laterality Comments TONSILLECTOMY/ADENOIDECTOMY Medical History Medical History Date Comments Hypertension Abdominal pain Anxiety GERD (gastroesophageal reflux disease) Family History Medical History Relation Name Comments Heart disease Father Hypertension Father Lung cancer Maternal Grandmother Diabetes Mother Colon cancer Paternal Grandfather Relation Name Status Comments Father Alive Maternal Grandfather Maternal Grandmother Mother Alive Other Paternal Grandfather Paternal Grandmother Social History Tobacco Use Types Packs/Day Years Used Date Smoking Tobacco: Former Cigarettes 1 10 Smokeless Tobacco: Never Alcohol Use Standard Drinks/Week Comments Yes 7 (1 standard drink = 0.6 oz pur e alcohol) AUDIT-C Answer Date Recorded Q1: How often do you have a drink containing alcohol? 4 or more times a week 10/27/2020 Q2: How many drinks containi ng alcohol do you have on a typical day when you are drinking? 3 or 4 Q3: How often do you have si x or more drinks on one occasion? 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 Gender Identity Not on file Sexual Orientation Not on file Obstetrics History Last Filed Vital Signs Vital Sign Reading Time Taken Comments Blood Pressure 140/82 08/15/2023 8:07 AM MERCHANDISE CLERK Pulse 95 08/15/2023 8:07 AM MERCHANDISE CLERK Temperature 36.9 C (98.4 F) 08/15/2023 8:07 AM MERCHANDISE CLERK Respiratory Rate 20 08/15/2023 8:07 AM MERCHANDISE CLERK Oxygen Saturation 98% 08/15/2023 8:07 AM MERCHANDISE CLERK Inhaled Oxygen Concentration - - Weight 126.1 kg (278 lb) 08/15/2023 8:07 AM MERCHANDISE CLERK Height 177.8 cm (5' 10) 08/15/2023 8:07 AM MERCHANDISE CLERK Body Mass Index 39.89 08/15/2023 8:07 AM MERCHANDISE CLERK Plan of Treatment Health Maintenance Due Date Last Done Comments Hepatitis C Screening 1970 Prostate Cancer Screening-PSA 1970 Hepatitis B Screening 01/27/1990 Regular Well Visit/Exam 18-64 01/27/1990 Depression Screening 10/27/2021 10/27/2020, 01/04/2019, 09/14/2018 Zoster Vaccine (1 of 2) 01/27/2022 Covid-19 Vaccine ( season) 2024 11/13/2020, 10/14/2020 Influenza Vaccine (#1) 2025 Colon Cancer Screening-Colonoscopy 09/29/2028 09/29/2018 DTaP/Tdap/Td Vaccine Discontinued 10/30/2020 Pneumococcal vaccine <65 Aged Out No longer eligible based on patient's age to complete this topic Procedures Procedure Name Priority Date/Time Associated Diagnosis Comments COLONOSCOPY 09/29/2018 12:24 PM CDT from Last 3 Months or Most Recently Relevant to Health Maintenance Results * COLONOSCOPY (09/29/2018 12:24 PM CDT) Anatomical Region Laterality Modality Other Narrative Procedure Note Shalom Benjamin MD - 09/29/2018 12:24 PM CDT [facility] Patient Name: Ted Lake Procedure Date: 09/29/2018 12:24 PM Date of : 1970 Admit Type: Outpatient Age: 48 Gender: Male Note Status: Finalized Attending MD: Shalom Benjamin M.D. Procedure Date: 09/29/2018 Procedure: Colonoscopy Indications: Rectal bleeding, Rectal pain Providers: Shalom Benjamin M.D., Martín Lee CRNA (Anesthesia Staff), So Sanchez RN Referring MD: Kd Church MD Medicines: Monitored Anesthesia Care Complications: No immediate complications. Estimated Blood Loss: Estimated blood loss: none. Procedure: Pre-Anesthesia Assessment: - Airway Examination: normal oropharyngeal airwayand neck mobility. - Respiratory Examination: clear to auscultation. - ASA Grade Assessment: II - A patient with mild systemic disease. - After reviewing the risks and benefits, thepatient was deemed in satisfactory condition to undergo the procedure. - The risks and benefits of the procedure and the sedation options and risks were discussed with the patient. All questions were answered and informed consent was obtained. After I obtained informed consent, the scope waspassed under direct vision. Throughout the procedure, the patient's blood pressure, pulse, and oxygensaturations were monitored continuously. The scope was passedunder direct vision. The Colonoscope CF-Q180 [place] [id number] introduced through the anus and advanced to the the cecum, identified by the appendiceal orifice,ileocecal valve and palpation. The colonoscopy was performedwith ease. The patient tolerated the procedure well. The quality of the bowel preparation was evaluated using the BBPS ([place] Bowel Preparation Scale) withscores of: Right Colon = 3 (entire mucosa seen well with no residual staining, small fragments of stool oropaque liquid), Transverse Colon = 3 (entire mucosa seenwell with no residual staining, small fragments of stoolor opaque liquid) and Left Colon = 3 (entire mucosaseen well with no residual staining, small fragments of stool or opaque liquid). The total BBPS score equals9. The quality of the bowel preparation was good. The bowel preparation used was SUPREP. Findings: The perianal and digital rectal examinations were normal. A 3 mm benign appearing polyp was found cecum. The polyp was sessile. The polyp was removed with a cold biopsy forceps. Resection and retrieval were complete. Estimated blood loss: none. A 3 mm polyp was found in the transverse colon. The polyp wassessile. The polyp was removed with a cold biopsy forceps. Resection and retrieval were complete. Estimated blood loss: none. The terminal ileum appeared normal. Localized moderate inflammation characterized by congestion (edema), erosions, erythema and granularity was found at the ileocecal valve. Biopsies were taken with a cold forceps for histology. Estimatedblood loss: none. Internal hemorrhoids were found during retroflexion. The hemorrhoids were moderate. Impression: - One 3 mm polyp in the cecum. Resected andretrieved. - One 3 mm polyp in the transverse colon. Resectedand retrieved. - The examined portion of the ileum was normal. - Localized moderate inflammation was found at the ileocecal valve. Biopsied. - Internal hemorrhoids. Recommendation: - Repeat colonoscopy in 5 years for surveillance. - Discharge patient to home (ambulatory). - Await pathology results. - Use original regular Metamucil one teaspoon POBID. Procedure Code(s): --- Professional --- 15381, Colonoscopy, flexible; with biopsy, single or multiple Diagnosis Code(s): --- Professional --- D12.0, Benign neoplasm of cecum D12.3, Benign neoplasm of transverse colon (hepatic flexure or splenic flexure) K64.8, Other hemorrhoids K52.9, Noninfective gastroenteritis and colitis, unspecified K62.5, Hemorrhage of anus and rectum K62.89, Other specified diseases of anus andrectum CPT copyright 2017 [employer]. All rights reserved. The codes documented in this report are preliminary and upon health sanitarian reviewmay be revised to meet current compliance requirements. Electronically signed by Shalom Benjamin MD Shalom Benjamin M.D. 09/29/2018 1:17:01 PM Number of Addenda: 0 Note Initiated On: 09/29/2018 12:24 PM Shalom Benjamin MD ENDOSCOPY PROCEDURES Final Resul t from Last 3 Months or Most Recently Relevant to Health Maintenance Insurance [facility] Care Teams Magazine Filler Relationship Specialty Start Date End Date Rojelio Wade MD PCP - General Family Medicine 10/24/20
--- OUTSIDE RECORDS SUMMARY | 2025-02-26 02:24 | XMS_ITS | Clinical Summary ---
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 Gender Identity Not on file Sexual Orientation Not on file Plan of Treatment Health Maintenance Due Date Last Done Comments Colorectal Cancer Screening Colonoscopy (10 Years) 1972 Annual Physical 01/27/1975 Hepatitis C 01/27/1990 DTaP, Tdap and Td Vaccines ( 1 - Tdap) 01/27/1991 Hepatitis B Vaccines (1 of 3 - 19+ 3-dose series) 01/27/1991 Pneumococcal Vaccine: 50+ Ye ars (1 of 1 - PCV) 01/27/2022 Zoster Vaccines (1 of 2) 01/27/2022 COVID-19 Vaccine ( - 2023-2 5 season) 2024 Meningococcal B Vaccine Aged Out No l onger eligible based on patient's age to complete this topic Meningococcal Vaccine Aged Out No kulwant tasha eligible based on patient's age to complete this topic RSV Immunizations Under 20 Months Aged Out No longer eligible based on patient's age to complete this topic Insurance [facility]
--- NOTE | 2025-02-26 06:56 | P.PNAN_ITS ---
Anes - Initial Pre Proc Eval Procedure: Operation Date: 02/26/25 11:00 Proposed Procedures p Screening Colonoscopy - Saúl Lobo MD Date/Time: 02/26/25 06:56 Surgeon: Saúl Lobo MD Pre Op Diagnosis: Screening Patient Data Age: 55 Gender: M Height: 1.78 m Weight: 112.4 kg Allergies Allergy/AdvReac Type Severity Reaction Status Date / Time No Known Allergies Allergy Verified 02/26/25 09:28 Home Medications ?Medication ?Instructions ?Recorded ?Confirmed ?Type ergocalciferol (vitamin D2) 1,250 2,000 mcg PO DAILY 04/19/24 02/26/25 History mcg (50,000 unit) capsule mecobalamin (vitamin B12) 2,500 2,500 mcg PO DAILY 04/19/24 02/26/25 History mcg chewable tablet multivitamin 1 tablet PO DAILY 04/19/24 02/26/25 History alcohol swabs (Alcohol Pads) 1 pad topical .every 2 weeks #14 ea 05/11/24 02/26/25 Rx syringe with needle 3 mL 22 gauge #14 ea 05/11/24 08/30/24 Rx x 1 (Vidable Luer Lock Syringe with needle) telmisartan 80 1 tablet PO DAILY #100 tabs 10/08/24 02/26/25 Rx mg-hydrochlorothiazide 25 mg tablet testosterone cypionate 200 mg/mL 200 mg IM .every 2 weeks #10 mL 10/15/24 02/26/25 Rx intramuscular oil rosuvastatin 5 mg tablet 5 mg PO DAILY #90 tabs 10/22/24 02/26/25 Rx verapamil 180 mg tablet,extended 180 mg PO HS #90 tabs 10/22/24 02/26/25 Rx release esomeprazole magnesium 40 mg 40 mg PO DAILY #90 caps 10/29/24 02/26/25 Rx capsule,delayed release meloxicam 15 mg tablet 15 mg PO DAILY #60 tabs 01/14/25 02/26/25 Rx Patient hx anesthesia problems: none Family hx anesthesia problems: none Results Review: All pre-operative results and documents have been reviewed as part of the pre- operative evaluation. [facility] Past Medical History Medical History High cholesterol Hypertension MERCEDES (obstructive sleep apnea) GERD (gastroesophageal reflux disease) Surgical History Surgical History H/O umbilical hernia repair W MESH 09/09/21 History of tonsillectomy History of colonoscopy History of esophagogastroduodenoscopy (EGD) Family History Family History Mother Diabetes mellitus Father Family history of cardiovascular disease Hypertension Heart problem Grandparent Colon cancer Other Carcinoma of colon Cerebrovascular accident Family history of lung cancer Family history of osteoporosis Social History Social History Smoking packs per day: 1 Smoking cigarettes per day: 20.0 Years smoked: 8 Smoking pack-years: 8.00 Smoking status: Never smoker Tobacco type: cigarettes Smoking end date: 07/18/01 Alcohol intake: current Drinks per week: 10 Substance use: never Substance use type: does not use Living arrangements: with family Additional living arrangements comments: with sp Occupation/Education: occupation 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 Informed Consent: The patient's anesthetic plan and its attendant risks and benefits were discussed with the patient/family/POA. Questions were solicited and answers provided to the satisfaction of the patient/family/POA.
[2025-02-26 09:20] VITALS: BP 135/83; PULSE 66; RESP 14; TEMP 36.5; O2SAT 98; BMI 35.4
[2025-02-26] MEDS: LACTATED RINGERS 1,000 ML 150 ML IV CONT (09:39)
--- NOTE | 2025-02-26 10:33 | P.HP_ITS ---
H&P: HPI History of Present Illness Date/Time: 02/26/25 10:33 Chief Complaint: History of colon polyps Narrative: The patient has a history of colonic polyps, the last colonoscopy was approximately 5 years ago. Review of Systems Review of Systems: All systems reviewed & are unremarkable except as noted in HPI and below PMFSH Past Medical History Medical History High cholesterol Hypertension MERCEDES (obstructive sleep apnea) GERD (gastroesophageal reflux disease) Surgical History Surgical History H/O umbilical hernia repair W MESH 09/09/21 History of tonsillectomy History of colonoscopy History of esophagogastroduodenoscopy (EGD) Family History Family History Mother Diabetes mellitus Father Family history of cardiovascular disease Hypertension Heart problem Grandparent Colon cancer Other Carcinoma of colon Cerebrovascular accident Family history of lung cancer Family history of osteoporosis Social History Social History Smoking packs per day: 1 Smoking cigarettes per day: 20.0 Years smoked: 8 Smoking pack-years: 8.00 Smoking status: Never smoker Tobacco type: cigarettes Smoking end date: 07/18/01 Alcohol intake: current Drinks per week: 10 Substance use: never Substance use type: does not use Living arrangements: with family Additional living arrangements comments: with sp Occupation/Education: occupation 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 Spiritual care concerns: No Meds Home Medications and Allergies Home Medications ?Medication ?Instructions ?Recorded ?Confirmed ?Type ergocalciferol (vitamin D2) 1,250 2,000 mcg PO DAILY 04/19/24 02/26/25 History mcg (50,000 unit) capsule mecobalamin (vitamin B12) 2,500 2,500 mcg PO DAILY 04/19/24 02/26/25 History mcg chewable tablet multivitamin 1 tablet PO DAILY 04/19/24 02/26/25 History alcohol swabs (Alcohol Pads) 1 pad topical .every 2 weeks #14 ea 05/11/24 02/26/25 Rx syringe with needle 3 mL 22 gauge #14 ea 05/11/24 08/30/24 Rx x 1 (twtMob Luer Lock Syringe with needle) telmisartan 80 1 tablet PO DAILY #100 tabs 10/08/24 02/26/25 Rx mg-hydrochlorothiazide 25 mg tablet testosterone cypionate 200 mg/mL 200 mg IM .every 2 weeks #10 mL 10/15/24 02/26/25 Rx intramuscular oil rosuvastatin 5 mg tablet 5 mg PO DAILY #90 tabs 10/22/24 02/26/25 Rx verapamil 180 mg tablet,extended 180 mg PO HS #90 tabs 10/22/24 02/26/25 Rx release esomeprazole magnesium 40 mg 40 mg PO DAILY #90 caps 10/29/24 02/26/25 Rx capsule,delayed release meloxicam 15 mg tablet 15 mg PO DAILY #60 tabs 01/14/25 02/26/25 Rx Allergies Allergy/AdvReac Type Severity Reaction Status Date / Time No Known Allergies Allergy Verified 02/26/25 09:28 Vital Signs Vital Signs - 24 hr 02/26/25 09:20 Temperature 97.7 F Pulse Rate 66 Respiratory Rate 14 Blood Pressure 135/83 Pulse Oximetry 98 Oxygen Delivery Room Air Exam Const: General: cooperative and healthy appearing Resp: Effort & Inspection: normal respiratory effort and able to speak in complete sentences Auscultation: clear to auscultation bilaterally Cardio: Rate: regular rate Rhythm: regular rhythm GI: Inspection: normal to inspection GI Palp: No No hepatosplenomegaly present Auscultation: normal bowel sounds Rectal Exam: deferred Skin: General skin exam: normal color Psych: Appearance: grossly normal Mental Status: mental status grossly normal Assessment and Plan Assessment and plan (1) History of colonic polyps: Code(s): Z86.0100 - Personal history of colon polyps, unspecified Status: Acute Assessment and Plan: The patient is deemed a good candidate for the procedure. Consent signed. Will proceed.
[2025-02-26] MEDS: SIMETHICONE ORAL SUSPENSION 20 MG/0.3 ML 30 ML BOTTLE 0.6 ML IRRIGATION (10:50)
[2025-02-26 10:57] VITALS: BP 108/81; PULSE 75; RESP 18; O2SAT 95
[2025-02-26 11:07] VITALS: BP 92/68; PULSE 74; RESP 13; O2SAT 95
[2025-02-26 11:17] VITALS: BP 113/80; PULSE 68; RESP 19; O2SAT 99
--- NOTE | 2025-02-26 11:24 | SUR.PHASEII ---
Pt did not wish to speak with MD before discharge.
== END 2025-02-26 11:24 | disposition home or self-care (01) ==
PROVIDERS: PCP Family Medicine; Referring Provider Family Medicine; Visit Provider Internal Medicine Gastroenterology
PROC: 0DJD8ZZ Inspection of Lower Intestinal Tract, Via Natural or Artificial Opening Endoscopic (ICD-10-PCS; CPT 45378; principal; 2025-02-26 11:00)
DX: Z12.11 Encounter for screening for malignant neoplasm of colon (principal); K64.8 Other hemorrhoids; I10 Essential (primary) hypertension; E78.00 Pure hypercholesterolemia, unspecified; G47.33 Obstructive sleep apnea (adult) (pediatric); K21.9 Gastro-esophageal reflux disease without esophagitis; E66.9 Obesity, unspecified; Z68.35 Body mass index [BMI] 35.0-35.9, adult; Z98.890 Other specified postprocedural states; Z86.0100 Personal history of colon polyps, unspecified; Z87.891 Personal history of nicotine dependence; Z80.0 Family history of malignant neoplasm of digestive organs; Z80.1 Family history of malignant neoplasm of trachea, bronchus and lung; Z82.49 Family history of ischemic heart disease and other diseases of the circulatory system
CPT/HCPCS: 45378; J2003; J2704; J7120